=== PATIENT | female | born 1950 | race Caucasian/White ===

== ENCOUNTER 2017-12-26 14:37 | Emergency (ER) | payer MEDICARE, OTHER, SELFPAY ==
[2017-12-26 14:38] VITALS: BP 137/97; PULSE 95; RESP 18; TEMP 36.6; O2SAT 95; BMI 24.7
[2017-12-26 14:51] LABS: Bedside Glucose 103 mg/dL (70-110)
--- NOTE | 2017-12-26 15:00 | ED.VISSUMM ---
- ER Visit Summary Date of Service: 12/26/17 Chief Complaint: Right sided facial droop History of Present Illness: The patient is a 67 F who presents because of right sided facial droop that was first noted yesterday. She complains of slight head pain. She denies any loss of vision partial or complete, blurred vision, change in vision or diplopia. She does report difficulty using the right side of her face. She denies any paresthesia, anesthesia or motor weakness in the upper or lower extremities. She denies any difficulty with speech or swallowing. She denies difficulty walking or balance. There is no history of trauma. There is no history of travel. She denies rash. Past medical history of GERD ray nods phenomenon and hypothyroidism. She is a smoker. Physical Examination: Vital signs are remarkable for a slight elevation blood pressure of 137/97. Patient has complete paralysis of the right side of the face including the forehead. Pupils equal round reactive. Extra muscle intact. There is normal cup-to-disc ratio. There is no papilledema. Patient has no nystagmus. Cranberry-Hallpike maneuver was negative. Patient is able to protrude tongue without deviation and soft palate rises. Uvula is midline. Trachea is midline with no stridor. There is no cervical lymphadenopathy. There is no carotid bruit. Heart is regular without murmur, gallop or rub. S1 and S2 are normal. Lungs are clear to auscultation with good movement of air bilaterally. She is alert and oriented ?3. Motor and sensory are intact upper and lower extremity. DTRs are symmetric with no clonus or Babinski. Cranial 2 through 12 revealed deficit of cranial 7 on the right. There is no truncal ataxia. NIH is to because of the facial droop. Test Results: No tests were obtained nor are any indicated. 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 She states her sister had Silverio's palsy and she is aware of the causes and treatment. Treatment Plan: Burst of prednisone and follow-up with PCP if no improvement in 1-2 weeks. Patient was given a prescription for erythromycin ophthalmic ointment to instill in her right eye at night and taper eyelid shot. She also was instructed to instill 1-2 drops of artificial tears right eye every 1-2 hours while awake. Disposition: Discharge to home with home-going instructions for Silverio's palsy Impression: Silverio's palsy affecting the right side initial encounter This note was generated with [employer] dictation software. It may contain incorrect words, spelling, and punctuation that were not noted in review of the chart prior to signing ED Disposition - Plan for ED Patient: Disposition: Home or Assisted Living Chief Complaint: Neuro S/Sx Instructions: ED [facility] Prescriptions: Prednisone 40 mg PO DAILY #10 tab Referrals: Kaitlin Mccord [Primary Care Provider] - 1 Week if not improving
[2017-12-26 15:20] VITALS: BP 143/93; PULSE 84; RESP 18; O2SAT 99
--- NOTE | 2017-12-26 16:52 | ED.DCSUM_ITS ---
- ER Visit Summary Date of Service: 12/26/17 Chief Complaint: [] History of Present Illness: The patient is a 67 F [] Physical Examination: [] Test Results: [] Emergency Department Course and Treatment: [] Treatment Plan: [] Disposition: [] Impression: [] This note was generated with [employer] dictation software. It may contain incorrect words, spelling, and punctuation that were not noted in review of the chart prior to signing ED Disposition - Plan for ED Patient: Disposition: Home or Assisted Living Chief Complaint: Neuro S/Sx Instructions: ED [facility] Prescriptions: Erythromycin Ophthalmic 1 applic RIGHT EYE QHS #1 tube Prednisone 40 mg PO DAILY #10 tab Referrals: Kaitlin Mccord [Primary Care Provider] - 1 Week if not improving
== END 2017-12-26 15:31 | disposition home or self-care (01) ==
PROVIDERS: Emergency Provider Emergency Medicine; Family Provider Nurse Practitioner; PCP Nurse Practitioner
DX: G51.0 Bell's palsy (principal); E03.9 Hypothyroidism, unspecified; I73.00 Raynaud's syndrome without gangrene; K21.9 Gastro-esophageal reflux disease without esophagitis; Z79.899 Other long term (current) drug therapy; F17.200 Nicotine dependence, unspecified, uncomplicated
CPT/HCPCS: 82962; 99283; A4216

== ENCOUNTER → 2018-04-26 13:53 | Outpatient (CLI) | payer MEDICARE, OTHER, SELFPAY ==
--- NOTE | 2018-04-26 13:58 | VDLE_ITS ---
Reason For Study: swelling RIGHT LEFT CFV is compressible, spontaneous, phasic, GSV is normal. competent and demonstrates normal CFV is compressible, spontaneous, phasic, augmentation. competent, and demonstrates normal Procedure augmentation. Exam performed in department. FV is compressible, spontaneous, phasic, The exam was diagnostic. competent and demonstrates normal A preliminary report was called and/or faxed augmentation. to Kaitlin Mccord. POP V is compressible, spontaneous, phasic, competent and demonstrates normal augmentation. T/P Trunk is compressible. PTV is compressible. LT PerV is compressible. Interpretation Summary Deep veins of the left lower extremity are patent and compressible segmentally. There is no evidence of left lower extremity deep vein thrombosis. Valvular competence appears intact within the proximal deep venous system on the left . The left greater saphenous vein appears patent and compressible segmentally. Ordering Physician: Kaitlin Mccord Performed By: Kirk Casillas RVT
== END ==
PROVIDERS: Family Provider Nurse Practitioner; PCP Nurse Practitioner; Visit Provider Nurse Practitioner
DX: M79.89 Other specified soft tissue disorders (principal)
CPT/HCPCS: 93971

== ENCOUNTER → 2018-04-28 12:47 | Outpatient (CLI) | payer MEDICARE, OTHER, SELFPAY ==
--- NOTE | 2018-04-28 12:56 | MRI_ITS ---
STUDY: MRI BRAIN WITH AND WITHOUT CONTRAST REASON FOR EXAM: Female, 67 years old. Silverio's palsy and right-sided headaches TECHNIQUE: Standardized multiplanar fat and water weighted pulse sequences were obtained. 6 ml of Gadavist contrast material was administered intravenously for the contrast portion of the examination. COMPARISON: None. FINDINGS: Mild atrophy and advanced periventricular white matter ischemic changes without mass effect or restricted diffusion.. Chronic ischemic changes are seen within the rafael. Normal bilateral basal ganglia. Normal thalami. There is no extra-axial fluid accumulation. Normal flow voids within the major intracranial circulation suggesting patency by spin echo criteria. Normal venous enhancement. There is no enhancing intra-axial or extra-axial abnormality. Partial empty sella deformity of uncertain significance.. Normal, infundibular stalk, optic chiasm and hypothalamus. Normal tectal plate and pineal gland. Normal midbrain, and medulla. Normal cerebellum. Normal basal cisterns. Normal bilateral temporal bones. Normal bilateral internal auditory canals. No demonstrated orbital abnormality, within the constraints of a routine brain study. Normal visualized paranasal sinuses. Normal calvarium and skull base. Normal visualized soft tissue structures. Normal visualized upper cervical spine. MRI/Brain W/WO Contrast IMPRESSION: Advanced periventricular white matter ischemic changes and chronic ischemic changes within the rafael without evidence for acute infarct. Partial empty sella deformity of uncertain clinical significance. Electronically Signed: Nigel Aragon MD at 16:54 EDT , Service support ,
[2018-04-28 14:55] LABS: CREATININE FINGERSTICK 0.6 mg/dL (0.55-1.02); EGFR FINGERSTICK > 60.0000 mL/min (>60)
== END ==
PROVIDERS: Family Provider Nurse Practitioner; PCP Nurse Practitioner; Visit Provider Nurse Practitioner
DX: G51.0 Bell's palsy (principal)
CPT/HCPCS: 70553; A9585

== ENCOUNTER → 2018-09-05 11:49 | Outpatient (CLI) | payer MEDICARE, OTHER, SELFPAY ==
[2018-09-05 13:25] LABS: Potassium 4.6 mmol/L (3.5-5.1)
== END ==
PROVIDERS: Family Provider Nurse Practitioner; PCP Nurse Practitioner; Referring Provider Nurse Practitioner; Visit Provider Nurse Practitioner
DX: E87.5 Hyperkalemia (principal)
CPT/HCPCS: 84132

== ENCOUNTER → 2019-03-08 14:53 | Outpatient (CLI) | payer MEDICARE, OTHER, SELFPAY ==
--- NOTE | 2019-03-08 14:58 | RAD_ITS ---
STUDY: X-RAY CHEST REASON FOR EXAM: Female, 68 years old. Cough TECHNIQUE: PA and lateral views of the chest. COMPARISON: None. FINDINGS: There is moderate left pleural effusion. There is likely underlying left basilar atelectasis, though superimposed pneumonia cannot be excluded. The right lung is clear and there is no right pleural effusion. Normal size heart. Normal mediastinum and addie. Normal visualized pulmonary arteries. Normal visualized aortic arch and descending thoracic aorta. Moderate degenerative changes of the spine. Normal visualized ribs, clavicles, and shoulders. There is no demonstrated abnormality of the visualized soft tissue structures of the upper abdomen. RAD/Chest PA and Lateral IMPRESSION: Moderate left pleural effusion. Left basilar atelectasis. Superimposed pneumonia cannot be excluded. Electronically Signed: Janiya Young, at 16:12 EDT Tel , Service support ,
== END ==
PROVIDERS: Family Provider Nurse Practitioner; PCP Nurse Practitioner; Referring Provider Nurse Practitioner; Visit Provider Nurse Practitioner
DX: R09.02 Hypoxemia (principal)
CPT/HCPCS: 71046

== ENCOUNTER → 2019-03-10 09:17 | Outpatient (CLI) | payer MEDICARE, OTHER, SELFPAY ==
[2019-03-10 11:01] LABS: Erythrocyte Sedimentation Rate > 130 mm/hr (0-30)
[2019-03-10 11:04] LABS: BNP,B-Type NATRIURETIC PEPTIDE 26.6 pg/mL (0-100)
[2019-03-13 13:39] LABS: Myoglobin, Serum 26 ng/mL (25-58)
== END ==
PROVIDERS: Family Provider Nurse Practitioner; PCP Nurse Practitioner; Referring Provider Nurse Practitioner; Visit Provider Nurse Practitioner
DX: R06.02 Shortness of breath (principal); R53.83 Other fatigue
CPT/HCPCS: 36415; 83874; 83880; 84484; 85652; 86140

== ENCOUNTER → 2019-03-22 13:51 | Outpatient (CLI) | payer MEDICARE, OTHER, SELFPAY ==
--- NOTE | 2019-03-22 | FLU_PTH ---
PATIENT: SILVIA BARRETO LOC: [facility]#:[id number] AGE/SX: 74/F ROOM: RE03/22/[address]: Dr. Joseph Leigh MD : 1950 BED: DIS: SPEC #: [id number] RECD: 03/22/19 15:00 STATUS: CB ALISTAIR #: [id number] JAE: 03/22/19 00:[address]: Joseph Leigh V DEPT: CYTOLOGY RECD BY: Iker Bertrand ENTERED: 03/23/19 08:12 SP TYPE: Fluid OTHR DR: Kaitlin Mccord, PIER HAND HELPER-C Tissues: THORACIC FLUID Procedures: Special Stain Group II Surgery Specimen Level IV Cytospin Fluid HEADER OPERATION: Ultrasound-guided left thoracentesis PRE-OP DIAGNOSIS: Pleural effusion TISSUE SUBMITTED: Thoracentesis fluid for cytology DIAGNOSIS CYTOLOGY Thoracentesis fluid for cytology (cytospins and cell block): Negative for malignant cells. See cytology study and comment. AM:joel 03/24/19 COMMENT Immunohistochemistry ([id number]) supports the above diagnosis. CYTOLOGY STUDY Slides are reviewed. The specimen contains abundant polymorphous lymphocytes consistent with chronic inflammation and reactive mesothelial cells. CYTOLOGY GROSS Received is 925 ml of cloudy yellow fluid labeled with the patient's name and and designated per the requisition as thoracentesis. Submitted for cytology preparation including cell block. / 03/23/19 TC:3 CPT: 41864, 00028
--- NOTE | 2019-03-22 | IMM_PTH ---
PATIENT: SILVIA BARRETO LOC: U#:[id number] AGE/SX: 74/F ROOM: RE03/22/[address]: Dr. Joseph Leigh MD : 1950 BED: DIS: SPEC #: [id number] RECD: 03/24/19 10:47 STATUS: CB REQ #: [id number] JAE: 03/22/19 00:[address]: Joseph Leigh V DEPT: IMMUNOHISTOCHEMISTRY RECD BY: Haven Tilley ENTERED: 03/24/19 10:49 SP TYPE: IMMUNO OTHR DR: Kaitlin Mccord, JEWELRY SETTER-C Tissues: THORACIC FLUID Procedures: Fabiano Ret (add) CD3 (add) CD45 (add) CD5 (add) CK20 (add) CK5-6 (add) CK7 (add) CK8 (add) MACRO (add) Vimentin (add) Pankeratin (initial) PHYSICIAN & INSTITUTION [place] [facility] [id number] SPECIMEN INFORMATION: Tissue Source: Thoracentesis fluid Clinical Info: Pleural effusion Specimen Number: [id number] CPT code: 95003, 58311 x10 METHODOLOGY: Deparaffinized sections of prefer/formalin-fixed tissue or PAP/DQ stained slides are incubated with monoclonal/polyclonal antibodies/oligonucleotide probes. Localization is made via biotin free immunoperoxidase method. Appropriate controls are performed and reacted as expected. Results on target cell population are indicated in the following table: RESULTS: ANTIBODY / CLONE RESULT AE1-3 (AE1/AE3/PCK26) positive CK7 (OV-TL12/30) positive CK8 (93osbtD80) positive CK20 (KS20.8) negative CD3 (PS1) positive CD5 (SP10) positive CD45 (RP2/18) positive Vimentin (V9) positive Macro (HAM-56) positive CALRET (polyclonal) positive CK5-6 (D5 & 1684) positive These tests were developed and their performance characteristics determined by [facility]. They may not have been cleared or approved by the U.S. Food and Drug Administration. The FDA has determined that such clearance or approval is not necessary. INTERPRETATION: Thoracentesis fluid: Reactive mesothelial cells and polymorphous lymphocyte population. AM:joel 03/28/19
--- NOTE | 2019-03-22 13:55 | US_ITS ---
STUDY: ULTRASOUND GUIDED LEFT THORACENTESIS. REASON FOR EXAM: Female, 68 years old. Left pleural effusion. TECHNIQUE: Under direct sonographic guidance, the pulmonary physician performed a left thoracentesis. 900 mL of stephanie color fluid was aspirated. COMPARISON: None. FINDINGS: Ultrasound guided left thoracentesis. US/Thoracentesis W US IMPRESSION: Ultrasound guided left thoracentesis with removal of 900 mL of stephanie-colored fluid. Electronically Signed: Lee Gan, at 15:17 EDT , Service support ,
--- NOTE | 2019-03-22 14:39 | RAD_ITS ---
STUDY: X-RAY CHEST REASON FOR EXAM: Female, 68 years old. The patient is status post left thoracentesis. TECHNIQUE: AP inspiration and expiration views. COMPARISON: Comparison is made with prior study dated March 08, 2019. FINDINGS: The patient is status post left thoracentesis. There is no evidence of pneumothorax. Persistent pleural-parenchymal changes seen at the left lung base. The right lung is clear. RAD/Chest Insp/Exp 2 View IMPRESSION: Status post left thoracentesis. There is no evidence of pneumothorax. Mild residual pleural-parenchymal changes are seen at the left lung base. Electronically Signed: Lee Gan, at 9:34 EDT , Service support ,
[2019-03-22] MEDS: Acetaminophen/Codeine #3 Tablet 1 TABLET PO (14:54)
[2019-03-22 14:55] VITALS: BP 144/82; PULSE 103; RESP 16; O2SAT 97
[2019-03-22 14:57] VITALS: BP 116/67; BP 118/100; BP 118/84; BP 119/63; BP 120/63; BP 121/65; BP 127/68; BP 141/84; BP 147/86; BP 151/91; PULSE 100; PULSE 102; PULSE 103; PULSE 104; PULSE 106; PULSE 107; PULSE 108; PULSE 99; RESP 16; RESP 18; RESP 20; O2SAT 93; O2SAT 94; O2SAT 96; O2SAT 97; O2SAT 99
[2019-03-22 15:10] VITALS: BP 140/90; PULSE 97; RESP 16; O2SAT 97
[2019-03-22 15:25] VITALS: BP 142/87; PULSE 99; RESP 16; O2SAT 90
[2019-03-22 15:34] LABS: Cytology, Body Fluid / CSF SEE PATHOLOGY REPORT
[2019-03-22 15:40] VITALS: BP 137/77; PULSE 96; RESP 16; O2SAT 88
[2019-03-22 16:00] VITALS: BP 140/83; PULSE 96; RESP 16; O2SAT 98
[2019-03-22 16:16] LABS: Body Fluid Mononuclear WBC # 3.901 10^3/uL; Body Fluid Mononuclear WBC % 88.1 %; Body Fluid Polynuclear WBC # 0.525 10^3/uL; Body Fluid Polynuclear WBC % 11.9 %; Body Fluid Total Cells Counted 4.557 10^3/ul (0.000-0.000); White Blood Count/Body Fluid 4.426 10^3/uL
[2019-03-22 17:26] LABS: Glucose, Body Fluid 99 mg/dL (40-70); LDH,Body Fluid 122 Units/l (Not Establ.)
[2019-03-22 21:01] LABS: Auto B Fluid Analyzer BKGD Ct COUNTS W/IN LIMITS (W/IN LIMITS); Color/Body Fluid LT YEL; Lymphocytes 80 %; Mesothelial Cells 11 %; Neutrophil (Segs) 9 %; Source- Body Fluid THORACENTESIS
[2019-03-22 21:02] LABS: Appearance/Body Fluid SL CLDY; Body Fluid QC Type(s) BF2Q
[2019-03-24 14:13] LABS: Pathologist Comment/Body Fluid Reviewed
[2019-03-27 10:00] LABS: pH, Body Fluid 11254 7.5 (Not Estab.)
== END ==
PROVIDERS: Family Provider Nurse Practitioner; PCP Nurse Practitioner; Referring Provider Internal Medicine Pulmonary Disease; Visit Provider Internal Medicine Pulmonary Disease
DX: J90 Pleural effusion, not elsewhere classified (principal)
CPT/HCPCS: 32555; 71046; 82945; 83615; 83986; 87015; 87101; 87116; 87206; 88108; 88305; 88313; 88341; 88342; 89050

== ENCOUNTER → 2019-03-28 07:52 | Outpatient (CLI) | payer MEDICARE, OTHER, SELFPAY ==
--- NOTE | 2019-03-28 08:06 | CT_ITS ---
We are attempting to reach an attending provider to discuss findings. An addendum with communication details will be sent when the communication is complete. STUDY: CT CHEST WITHOUT CONTRAST REASON FOR EXAM: Female, 68 years old. Pleural effusion. Status post thoracentesis one week ago RADIATION DOSAGE (If Supplied By Facility): CTDIvol = ( 5.67 ) mGy, DLP = ( 218.47 ) mGycm TECHNIQUE: Transaxial imaging was performed without the administration of intravenous contrast material. Coronal and sagittal reformatted images were created. Individualized dose optimization techniques were used for this CT. COMPARISON: X-ray dated 03/22/2019. FINDINGS: Evaluation is limited without intravenous contrast. There are mild emphysematous changes noted in the lungs. There is a moderate partially loculated left pleural effusion with small foci of air, consistent with a hydropneumothorax. There is overlying atelectasis of the greater than 50% of the left lower lobe. An underlying mass cannot be excluded. The right lung is clear. There is no right pneumothorax. The heart is normal in size. There is a trace pericardial effusion. There is mediastinal lymphadenopathy noted measuring up to 1.9 cm in the prevascular space. There is no evidence of thoracic aortic aneurysm. The pulmonary artery is dilated, measuring 3.6 cm. Images through the upper abdomen demonstrate no significant abnormality. There are no destructive osseous lesions. CT/Chest without Contrast IMPRESSION: Study limited without contrast. Mild emphysema. Moderate partially loculated left pleural effusion with small foci of air, consistent with a hydropneumothorax. Overlying atelectasis of greater than 50% of the left lower lobe. An underlying mass cannot be excluded. Mediastinal lymphadenopathy. Trace pericardial effusion. Dilated pulmonary artery, consistent with pulmonary arterial hypertension. Electronically Signed: Evaristo Gordillo, at 17:02 EDT Tel , Service support ,
== END ==
PROVIDERS: Family Provider Nurse Practitioner; PCP Nurse Practitioner; Referring Provider Internal Medicine Pulmonary Disease; Visit Provider Internal Medicine Pulmonary Disease
DX: J90 Pleural effusion, not elsewhere classified (principal)
CPT/HCPCS: 71250

== ENCOUNTER → 2019-04-19 14:54 | Outpatient (CLI) | payer MEDICARE, OTHER, SELFPAY ==
--- NOTE | 2019-04-19 15:10 | ECHOD_ITS ---
Reason For Study: PHTN Procedure This was a 2D Doppler, Color Flow transthoracic echocardiogram. Exam performed in department. Left Ventricle Normal size and thickness. The estimated ejection fraction is 65 %. Stage 1 diastolic dysfunction. No regional wall motion abnormalities noted. Right Ventricle Normal size and thickness. Normal systolic function. Atria Normal left atrium. Normal right atrium. Normal atrial septum. Mitral Valve The mitral valve is structurally normal. No prolapse or stenosis seen. Tricuspid Valve Normal tricuspid valve. Mild (1+) tricuspid valve insufficiency. Right ventricular systolic pressure estimated to be 46 mmHg. Moderate pulmonary hypertension. Aortic Valve Trisinus/trileaflet aortic valve. Mild focal aortic valve thickening. Mild (1+) aortic valve insufficiency. Pulmonic Valve Normal pulmonic valve. Mild (1+) pulmonic valve insufficiency. Great Vessels Normal aortic root. Normal arch. Normal inferior vena cava. Inferior vena cava collapse with sniff. Pericardium/Pleural No pericardial effusion. MMode/2D Measurements & Calculations LVIDd: 3.4 cm IVSd: 1.3 cm Ao root diam: 3.5 cm LVIDs: 2.2 cm LVPWd: 1.0 cm RVDd: 2.4 cm FS: 35.4 % LAV(MOD-bp): 13.7 ml LVAd ap4: 14.4 cm2 SV(MOD-sp4): 16.5 ml LAV(MOD-bp) Indexed: 9.6 ml/m2 EDV(MOD-sp4): 29.2 ml LAV(MOD-sp2): 11.9 ml EDV(sp4-el): 30.0 ml LAV(MOD-sp4): 12.6 ml LVAs ap4: 8.7 cm2 ESV(MOD-sp4): 12.7 ml ESV(sp4-el): 13.0 ml EF(MOD-sp4): 56.5 % EF(sp4-el): 56.8 % SV(sp4-el): 17.1 ml LA A4 area: 8.1 cm2 LA dimension(2D): 2.7 cm RA A4 area: 4.9 cm2 Doppler Measurements & Calculations MV E max karthikeyan: 49.8 cm/sec Lat Peak E' Karthikeyan: 7.5 cm/sec Med Peak E' Karthikeyan: 6.4 cm/sec MV A max karthikeyan: 98.5 cm/sec E/E' lat: 6.7 E/E' med: 7.8 MV E/A: 0.51 Ao V2 max: 132.9 cm/sec AI max karthikeyan: 454.1 cm/sec LV V1 max: 121.2 cm/sec Ao max P.1 mmHg AI max P.5 mmHg LV V1 max P.9 mmHg Ao V2 mean: 92.8 cm/sec Ao mean P.8 mmHg AI dec slope: 189.4 cm/sec2 Ao V2 VTI: 20.0 cm AI P1/2t: 702.2 msec PA V2 max: 101.2 cm/sec PI end-d karthikeyan: 180.1 cm/sec TR max karthikeyan: 318.4 cm/sec TR max P.6 mmHg Interpretation Summary The estimated ejection fraction is 65 %. Stage 1 diastolic dysfunction. Mild (1+) tricuspid valve insufficiency. Right ventricular systolic pressure estimated to be 46 mmHg. Moderate pulmonary hypertension. Mild (1+) aortic valve insufficiency. Mild (1+) pulmonic valve insufficiency. There is no comparison study available. Ordering Physician: Joseph Leigh Referring Physician: Kaitlin Mccord Performed By: Janeth Smith RDCS, RVT
== END ==
PROVIDERS: Family Provider Nurse Practitioner; PCP Nurse Practitioner; Referring Provider Internal Medicine Pulmonary Disease; Visit Provider Internal Medicine Pulmonary Disease
DX: I27.20 Pulmonary hypertension, unspecified (principal)
CPT/HCPCS: 93306

== ENCOUNTER 2019-04-26 11:23 | Day surgery (SDC) | payer MEDICARE, OTHER, SELFPAY ==
[2019-04-26] VITALS (12 sets, daily range): BP systolic 139–169; BP diastolic 84–115; PULSE 99–125; RESP 16–20; TEMP 36.2–36.7; O2SAT 92–98; BMI 20.5
--- NOTE | 2019-04-26 | FLU_PTH ---
PATIENT: SILVIA BARRETO LOC: [facility] U#:[id number] AGE/SX: 68/F ROOM: RE04/26/[address]: Dr. Joseph Leigh MD : 1950 BED: DIS: 04/26/2019 SPEC #: [id number] RECD: 04/26/19 15:57 STATUS: CB RESilviano #: [id number] JAE: 04/26/19 00:[address]: Joseph Leigh V DEPT: CYTOLOGY RECD BY: Iker Bertrand ENTERED: 04/27/19 08:50 SP TYPE: Fluid OTHR DR: Kaitlin Mccord, BOILER HOUSE OPERATOR-C Tissues: A - Lung, NOS B - Lung, NOS C - Lung, NOS Procedures: Special Stain Group II Surgery Specimen Level IV Cytospin Fluid Cytology Other HEADER OPERATION: Bronchoscopy PRE-OP DIAGNOSIS: Left lung mass TISSUE SUBMITTED: A. Left upper lung washing, B. Left upper lung brush, C. Left upper lung slides DIAGNOSIS CYTOLOGY A. Left upper lung washings, direct smears and cell block: Positive for malignant cells, consistent with non-small cell carcinoma. B. Left upper lung brushings, cell block: Positive for malignant cells, consistent with non-small cell carcinoma. C. Left upper lung brushings, direct smears: Positive for malignant cells, consistent with non-small cell carcinoma. CE:rg 04/28/19 COMMENT Please see separate biopsy ([id number]) and immunohistochemistry report ([id number]). CYTOLOGY STUDY Slides are reviewed. CYTOLOGY GROSS A - Received is 27 ml of red cloudy mucoid fluid labeled with the patient's name and and designated per the requisition as TORO washing. Submitted for cytology preparation including cell block. B - Received is a brush labeled with the patient's name and and designated per the requisition as TORO brush. Submitted for preparation of cell block. C - Received are 3 smears labeled with the patient's name and designated per the requisition as TORO brushings. Submitted for staining. / RB:cc 04/27/19 TC:0 CPT: 04324 x2, 62393, 58511 x2
--- NOTE | 2019-04-26 | LUNG_PTH ---
PATIENT: SILVIA BARRETO LOC: [facility] U#:[id number] AGE/SX: 68/F ROOM: RE04/26/[address]: Dr. Joseph Leigh MD : 1950 BED: DIS: 04/26/2019 SPEC #: [id number] RECD: 04/26/19 15:57 STATUS: CB RESilviano #: [id number] JAE: 04/26/19 00:[address]: Joseph Leigh V DEPT: SURGICAL PATHOLOGY RECD BY: Iker Bertrand ENTERED: 04/27/19 08:51 SP TYPE: LUNG BX OTHR DR: Kaitlin Mccord, RUG INSPECTOR HELPER-C Tissues: Lung, NOS Procedures: Surgery Specimen Level IV HEADER OPERATION: Bronchoscopy PRE-OP DIAGNOSIS: Left lung mass TISSUE SUBMITTED: Left upper lung biopsy MICROSCOPIC DIAGNOSIS Left lung, upper lobe mass, bronchial biopsy: Invasive poorly differentiated non-small cell carcinoma. CE:joel 04/28/19 COMMENT The results of immunohistochemistry favor poorly differentiated squamous cell carcinoma. Please see separate immunohistochemistry report ([id number]). Findings were discussed with Dr. Leigh on 04/28/19. MICROSCOPIC DESCRIPTION Slides are reviewed. GROSS DESCRIPTION Received in fixative is one container labeled with the patient's name and designated left upper lobe biopsy. The specimen consists of multiple biopsy fragments measuring up to 2 mm in greatest dimension. The specimen is filtered and totally submitted in one cassette. / FA:rg 04/27/19 TC:0 CPT: 42013
--- NOTE | 2019-04-26 | IMM_PTH ---
PATIENT: SILVIA BARRETO LOC: [facility] U#:[id number] AGE/SX: 68/F ROOM: RE04/26/[address]: Dr. Joseph Leigh MD : 1950 BED: DIS: 04/26/2019 SPEC #: [id number] RECD: 04/28/19 11:27 STATUS: CB RESilviano #: [id number] JAE: 04/26/19 00:[address]: Joseph Leigh V DEPT: IMMUNOHISTOCHEMISTRY RECD BY: Haven Tilley ENTERED: 04/28/19 11:28 SP TYPE: IMMUNO OTHR DR: Kaitlin Mccord, [employer]-C Tissues: Lung, NOS Procedures: NAPSIN A (add) CK20 (add) CK5-6 (add) KI-67 (add) TTF1 (add) CK7 (initial) PHYSICIAN & INSTITUTION [place] [id number] SPECIMEN INFORMATION: Tissue Source: Left upper lung biopsy Clinical Info: Left lung mass Specimen Number: [id number] CPT code: 77327, 44198 x5 METHODOLOGY: Deparaffinized sections of prefer/formalin-fixed tissue or PAP/DQ stained slides are incubated with monoclonal/polyclonal antibodies/oligonucleotide probes. Localization is made via biotin free immunoperoxidase method. Appropriate controls are performed and reacted as expected. Results on target cell population are indicated in the following table: RESULTS: ANTIBODY / CLONE RESULT CK7 (OV-TL12/30) strongly positive CK20 (KS20.8) negative TTF-1 (8G7G3/1) negative Napsin A (Rabbit Polyclonal) weakly positive with high background staining CK5-6 (D5 & 1684) strongly positive Ki-67 (30-9) strongly positive in >50% of tumor cells These tests were developed and their performance characteristics determined by [facility]. They may not have been cleared or approved by the U.S. Food and Drug Administration. The FDA has determined that such clearance or approval is not necessary. INTERPRETATION: Left upper lung biopsy: The results of immunohistochemistry favor poorly differentiated squamous cell carcinoma. CE:joel 04/28/19
--- NOTE | 2019-04-26 15:42 | OP.ENDO_ITS ---
Patient Name: Gricel Huddleston Procedure Date: 04/26/2019 1:53 PM Date of : 1950 Age: 68 Procedure: Bronchoscopy Indications: Left mainstem mass Providers: Joseph Leigh MD Referring MD: Kaitlin Mccord NP Medicines: Monitored Anesthesia Care Complications: No immediate complications Procedure: Pre-Anesthesia Assessment: - A History and Physical has been performed. Patient meds and allergies have been reviewed. The risks and benefits of the procedure and the sedation options and risks were discussed with the patient. All questions were answered and informed consent was obtained. Patient identification and proposed procedure were verified prior to the procedure by the physician in the procedure room. Mental Status Examination: sedated. Airway Examination: normal oropharyngeal airway. Respiratory Examination: poor air movement in the left lung. CV Examination: RRR, no murmurs, no S3 or S4 and tachy. After reviewing the risks and benefits, the patient was deemed in satisfactory condition to undergo the procedure. The anesthesia plan was to use monitored anesthesia care (MAC). Immediately prior to administration of medications, the patient was re-assessed for adequacy to receive sedatives. The heart rate, respiratory rate, oxygen saturations, blood pressure, adequacy of pulmonary ventilation, and response to care were monitored throughout the procedure. The physical status of the patient was re-assessed after the procedure. After I obtained informed consent, the scope was passed under direct vision. Throughout the procedure, the patient's blood pressure, pulse, and oxygen saturations were monitored continuously. The bronchoscope was introduced through the right nostril and advanced to the tracheobronchial tree of both lungs. The patient tolerated the procedure well. The total duration of the procedure was 0 hours and 19 minutes. Findings: The nasopharynx/oropharynx appears normal. The larynx appears normal. The vocal cords appear normal. The subglottic space is normal. The trachea is of normal caliber. The tori is sharp. The tracheobronchial tree of the right lung was examined to at least the first subsegmental level. Bronchial mucosa and anatomy in the right lung are normal; there are no endobronchial lesions, and no secretions. Left Lung Abnormalities: A partially obstructing (about 40% obstructed) mass was found 2 cm from the bifurcation (tori) in the left mainstem bronchus. The mass was small and bloody, friable, fungating and submucosal. The lesion was not traversed. Impression: - Left mainstem mass - The airway examination of the right lung was normal. - A bloody, friable, fungating and submucosal mass was found in the left mainstem bronchus. - No specimens collected. Recommendation: - Await biopsy and cytology results. Procedure Code(s): --- Professional --- 93225, Bronchoscopy, rigid or flexible, including fluoroscopic guidance, when performed; diagnostic, with cell washing, when performed (separate procedure) Diagnosis Code(s): --- Professional --- R91.8, Other nonspecific abnormal finding of lung field J98.9, Respiratory disorder, unspecified CPT copyright 2017 [employer]. All rights reserved. The codes documented in this report are preliminary and upon certified professional coder review may be revised to meet current compliance requirements. MD Joseph Kemp MD 04/26/2019 3:42:09 PM This report has been signed electronically. Number of Addenda: 0 Note Initiated On: 04/26/2019 1:53 PM
[2019-04-26 16:00] LABS: Cytology, Body Fluid / CSF SEE PATHOLOGY REPORT; Cytology, Washings SEE PATHOLOGY REPORT
== END 2019-04-26 17:56 | disposition home or self-care (01) ==
LOC: EN 11:24 → AC 11:34
PROVIDERS: Family Provider Nurse Practitioner; PCP Nurse Practitioner; Referring Provider Internal Medicine Pulmonary Disease; Visit Provider Internal Medicine Pulmonary Disease
PROC: 0BJ08ZZ Inspection of Tracheobronchial Tree, Via Natural or Artificial Opening Endoscopic (ICD-10-PCS; CPT 31622; principal; 2019-04-26 12:15)
DX: C34.12 Malignant neoplasm of upper lobe, left bronchus or lung (principal); J44.9 Chronic obstructive pulmonary disease, unspecified; J18.9 Pneumonia, unspecified organism; R09.02 Hypoxemia; I27.29 Other secondary pulmonary hypertension; I10 Essential (primary) hypertension; M06.9 Rheumatoid arthritis, unspecified; E07.9 Disorder of thyroid, unspecified; M79.7 Fibromyalgia; D64.9 Anemia, unspecified; Z79.899 Other long term (current) drug therapy; Z87.891 Personal history of nicotine dependence
CPT/HCPCS: 31622; 88108; 88161; 88305; 88313; 88341; 88342; 94640; J7120; J2405

== ENCOUNTER → 2019-05-15 07:13 | Outpatient (CLI) | payer MEDICARE, OTHER, SELFPAY ==
[2019-04-26 11:51] VITALS: BMI 20.5
--- NOTE | 2019-05-15 08:00 | PET_ITS ---
EXAMINATION: FDG PET CT INDICATIONS: A 68-year-old female with history of primary lung carcinoma presenting for initial staging examination. COMPARISON EXAMINATION: CT of the chest report dated 03/28/19. INDEX LESION SIZE SUV INTERPRETATION Subcarinal posterior mediastinum, left infrahilar region, left thoracic perihilum 8.7 cm x 6.4 cm (frame 173) 16.5 Fulfills quantitative criteria for viable neoplasm NON-INDEX LESION SIZE SUV INTERPRETATION Diffuse non-nodular left mid lung field 2.2 (max) Quantitative criteria for viable neoplasm are not fulfilled, most consistent with atelectatic changes TECHNIQUE: Following the intravenous administration of 14.9 mCi of F-18 deoxyglucose via the left wrist, multiplanar image acquisitions of the neck, chest, abdomen and pelvis to level of mid thigh, obtained at one hour post radiopharmaceutical administration contemporaneously interpreted with the current CT of the neck, chest, abdomen and pelvis to level of mid thigh, dated 05/15/[address] of the chest report dated 03/28/19 reveal: SERUM GLUCOSE LEVEL: 93 mg/dl. HEIGHT: 69 inches. WEIGHT: 98 lbs. FINDINGS: 1. A focus of increased glucose metabolism is defined in the subcarinal posterior mediastinum and left infrahilar region. The calculated maximum standard uptake value is 16.5. The maximal axial diameter of the corresponding metabolic, morphologic abnormality on review of CT of the chest dated 05/15/19 is 8.7 cm (transverse) x 6.4 cm (AP). 2. Non-nodular diffuse increase in FDG concentration is demonstrated in the left upper-lower lung field, which appears to corresponding atelectatic change on review of CT of the chest dated 05/15/19. The calculated maximum standard uptake value is 2.2. 3. Facilitated tracer concentration is noted in the subcarinal mediastinum, which appears contiguous to the distal descending thoracic aorta without evidence of additional anatomic correlate. 4. Normal physiologic distribution of the radiopharmaceutical is apparent in the hepatic (2.6) and splenic parenchyma, both renal units, bladder and visualized intestinal tract. There is uniform distribution of the radiopharmaceutical concentration defined in the visualized cerebellar hemispheres and cerebral cortical structures.? Diffuse intestinal tract activity is noted throughout all four quadrants of the abdominal-pelvic retroperitoneum, mesentery consistent with normal physiologic distribution of the radiopharmaceutical, most accentuated in the proximal-mid ascending colon. Pertinent CT findings are as follows. CHEST: A left hemithorax pleural effusion demonstrates no evidence of quantitatively significant increased glucose metabolism. Atherosclerotic calcification is defined in the thoracic aorta without evidence of dilatation, aneurysm formation. Coronary arterial calcification is observed. Bilateral axillary soft tissue densities with fatty hilus formation are non-glucose avid. A subcentimeter parenchymal density noted in the right apical lung field is ametabolic. There are no additional parenchymal densities-nodules defined in the right-left hemithorax demonstrating discernible increased FDG uptake. ABDOMEN AND PELVIS: The gallbladder is prominent in size. Atherosclerotic calcification is defined in the abdominal aorta without evidence of dilatation, aneurysm formation. Pelvic arterial calcification is observed. Right-left inguinal soft tissue densities demonstrate no evidence of increased glucose metabolism. Calcifications are noted in the bilateral lower hemipelvis. SKELETAL: Degenerative changes defined in the cervical, thoracic and lumbar spine demonstrate no evidence for glucose hypermetabolism. PET/PET/CT Tumor Base -Thigh Init IMPRESSION: 1. ABNORMAL EXAMINATION INDICATIVE OF MALIGNANT-VIABLE NEOPLASM. 2. Increased glucose concentration observed in the posterior subcarinal mediastinum and left thoracic perihilum, infrahilar regions fulfills quantitative criteria for viable neoplasm. 3. Diffuse non-nodular enhanced FDG uptake noted in the left hemithorax appears to represent atelectatic changes. 4. Prominent intestinal tract distribution of radiopharmaceutical noted in the proximal-mid ascending colon is most consistent with physiologic distribution of the radiopharmaceutical. If intraluminal soft tissue mass formation is a diagnostic consideration, correlation with CT of the abdomen and pelvis with oral and intravenous contrast is recommended. (Doant et al, Journal of Nuclear Medicine, 30:S276, 2003). 5. Facilitated uptake noted in the descending thoracic aorta is most consistent with activated leukocytes associated with atherosclerotic plaque formation. (Migue et al, Clinical Nuclear Medicine 29:93, 2004). Electronic Signature Cosme Self D.O. Electronically Signed: Cosme Self DO at 23:02 EDT Tel , Service support ,
== END ==
PROVIDERS: Family Provider Nurse Practitioner; PCP Nurse Practitioner; Referring Provider Internal Medicine Pulmonary Disease; Visit Provider Internal Medicine Pulmonary Disease
DX: C34.32 Malignant neoplasm of lower lobe, left bronchus or lung (principal)
CPT/HCPCS: 78815; A9552

== ENCOUNTER → 2019-05-16 12:26 | Outpatient (CLI) | payer MEDICARE, OTHER, SELFPAY ==
[2019-04-26 11:51] VITALS: BMI 20.5
--- NOTE | 2019-05-16 12:33 | RAD_ITS ---
STUDY: X-RAY CHEST REASON FOR EXAM: Female, 68 years old. Chest pain and shortness of breath. TECHNIQUE: PA and lateral views of the chest. COMPARISON: Comparison is made with prior study dated March 22, 2019. FINDINGS: There now is evidence of complete opacification of the left hemithorax with shift of the heart and mediastinal structures towards the left side of the midline. There is suggestion of occlusion of the left mainstem bronchus with the postobstructive volume loss. A pleural effusion cannot be excluded. Bronchoscopy is recommended. There is hyperinflation of the right lung with no evidence of stable scattered calcified granulomas. Normal size heart. Normal mediastinum and addie. Normal visualized pulmonary arteries. There is atherosclerotic calcification of the aortic arch with tortuosity. There is a dextroscoliosis of the thoracic spine. Normal visualized ribs, clavicles, and shoulders. There is no demonstrated abnormality of the visualized soft tissue structures of the upper abdomen. RAD/Chest PA and Lateral IMPRESSION: Complete opacification of the left hemithorax suggestive of a obstruction of the left mainstem bronchus with postobstructive pneumonitis and possible left pleural effusion Electronically Signed: Lee Gan, at 13:05 EDT , Service support ,
== END ==
PROVIDERS: Family Provider Nurse Practitioner; PCP Nurse Practitioner; Referring Provider Nurse Practitioner; Visit Provider Nurse Practitioner
DX: R05 Cough (principal)
CPT/HCPCS: 71046

== ENCOUNTER → 2019-05-17 12:08 | Outpatient (CLI) | payer MEDICARE, OTHER, SELFPAY ==
[2019-04-26 11:51] VITALS: BMI 20.5
--- NOTE | 2019-05-17 12:23 | US_ITS ---
STUDY: SUPERFICIAL ULTRASOUND - LEFT PLEURAL SPACE. REASON FOR EXAM: Female, 68 years old. Opacification and volume loss of the left hemithorax. TECHNIQUE: A superficial ultrasound was performed with real-time and static hutson-scale imaging. COMPARISON: None. FINDINGS: There is a small left pleural effusion. Underlying dense consolidation of the left lower lobe. US/Chest IMPRESSION: Small left pleural effusion with dense underlying consolidation of the left lower lobe. Electronically Signed: Lee Gan, at 15:24 EDT , Service support ,
== END ==
PROVIDERS: Family Provider Nurse Practitioner; PCP Nurse Practitioner; Referring Provider Internal Medicine Pulmonary Disease; Visit Provider Internal Medicine Pulmonary Disease
DX: C34.90 Malignant neoplasm of unspecified part of unspecified bronchus or lung (principal); J90 Pleural effusion, not elsewhere classified
CPT/HCPCS: 76604